=== PATIENT | male | born 1995 | race Caucasian/White ===

== ENCOUNTER 2018-09-25 22:16 | Observation (INO) ==
--- NOTE | 2018-09-25 23:24 | Emergency Department Note ---
Abdominal Pain HPI - General Chief Complaint: Abdominal Pain Stated Complaint: right lower abd. pain Time Seen by Provider: 09/25/18 23:03 Mode of arrival: ambulatory - History of Present Illness HPI Narrative: Tano is a 23-year-old young adult who describes right lateral abdominal pain that began around noon. About 3 hours ago it changed from being in the area between his epigastrium and umbilicus to right of his umbilicus. He vomited a couple times and feels some nausea. He had a colonoscopy 2 weeks ago that was negative. This was done because his father had colon cancer at age 23. He has had some sweats but no fevers or chills. Pain is worsened by juggling or bouncing REVIEW OF SYSTEMS: Denies chest pain. A little short of breath with the pain. No diarrhea or hematochezia or melena. Has had some constipation. No dysuria. No dizziness. - Related Data Previous Rx's Medication Instructions Recorded Ondansetron [Zofran Odt] 4 mg PO Q4-6H PRN #10 tablet 03/28/15 albuterol sulfate HFA 90 180 mcg INHALATION Q6H PRN #2 07/27/16 mcg/actuation aerosol inhaler device inhalational spacing device See Dose Instructions .ROUTE 07/27/16 .MEDSUPPLY #2 packet mometasone-formoterol HFA 200 2 inh INHALATION BID #1 device 07/27/16 mcg-5 mcg/actuation aerosol inhaler Allergies Allergy/AdvReac Type Severity Reaction Status Date / Time Amoxicillin Allergy Mild Rash Verified 09/11/18 12:01 Abdominal Pain PMH - Past Medical History Medical history: Reports: asthma, migraine. Denies: DM, hypertension Surgical history ED: Reports: no surgical history - Social History Smoking status: Never smoker Alcohol use: Reports: Occasionally Drug use: Reports: none Physical Exam Limitations: no limitations General appearance: alert, consternation (Mildly), in no apparent distress, malaise Head: atraumatic, normocephalic Eye: Present: EOMI Neck: Present: trachea midline. Absent: lymphadenopathy, thyromegaly Chest: Present: symmetric chest wall rise Respiratory: Present: normal lung sounds bilaterally. Absent: respiratory distress, wheezes, stridor, accessory muscle use, prolonged expiratory phase Cardiovascular: Present: regular rate, normal rhythm. Absent: systolic murmur, diastolic murmur Abdominal: Present: soft, tenderness, guarding. Absent: distention, rebound, rigidity, organomegaly, mass Abdominal tenderness: Present: RLQ, moderate Extremities: Absent: pedal edema, pretibial edema, calf tenderness Neurological: Present: alert, oriented X3 Psychiatric: Present: serious. Absent: depressed, agitated, anxious, poor eye contact Skin: Present: warm, dry Course Vital Signs Pulse Rate 65 09/25/18 23:07 Blood Pressure 110/60 09/25/18 23:07 Pulse Oximetry (%) 100 09/25/18 23:07 Pulse Rate 73 09/26/18 00:31 Blood Pressure 110/66 09/26/18 00:31 Pulse Oximetry (%) 100 09/26/18 00:31 Abdominal Pain - MDM Narrative Medical decision making narrative: Right lower quadrant pain on a background of some constipation. I will order labs and ultrasound and if this is negative CT scan. - Lab Data Lab results reviewed: Yes I reviewed the patient's lab results. Result diagrams: 09/25/18 23:13 09/25/18 23:13 Lab Results 09/25/18 09/25/18 Range/Units 23:13 23:13 WBC 13.1 H (4.5-11.0) K/mcL RBC 5.11 (4.50-5.90) M/mcL Hgb 15.5 (13.5-16.5) g/dL Hct 45.6 (41.0-55.0) % MCV 89.2 (80.0-100.0) fL MCH 30.3 (26.0-34.0) pg MCHC 34.0 (31.0-36.0) g/dL RDW 12.8 (11.5-14.5) % Plt Count 196 (140-440) K/mcL MPV 8.9 (7.4-10.4) fL Gran % 79.8 H (38.0-78.0) % Lymph % (Auto) 11.5 L (15.5-49.0) % [place] % (Auto) 6.5 (1.0-12.0) % Eos % (Auto) 1.8 (0.0-7.0) % Baso % (Auto) 0.4 (0.0-2.0) % Gran # 10.4 H (1.8-8.0) K/mcL Lymph # (Auto) 1.5 (1.5-4.8) K/mcL [place] # (Auto) 0.9 (0.1-0.9) K/mcL Eos # (Auto) 0.2 (0.0-0.7) K/mcL Baso # (Auto) 0 (0.0-0.3) K/mcL Sodium 140 (133-145) mmol/L Potassium 3.6 (3.3-5.1) mmol/L Chloride 101 (96-108) mmol/L Carbon Dioxide 23 (22-30) mmol/L Anion Gap 16.0 (8-16) BUN 16 (6-20) mg/dl Creatinine 1.1 (0.7-1.2) mg/dl GFR Calculation 95 Glucose 115 H (70-105) mg/dL Calcium 9.7 (8.6-10.4) mg/dl Total Bilirubin 0.5 (0.0-1.0) mg/dL AST 25 (0-37) U/l ALT 20 (0-40) U/l Alkaline Phosphatase 59 (39-117) U/L C-Reactive Protein 0.3 (0.0-0.8) mg/dl Total Protein 7.2 (5.9-8.4) gm/dL Albumin 4.8 (3.2-5.2) gm/dL Globulin 2.4 (2.2-3.7) gm/dL Albumin/Globulin Ratio 2.0 (1.0-2.3) - Radiology Data Radiology results reviewed: Yes I reviewed the patient's radiology results. Disposition Pt seen by [facility]/PA only: No Clinical Impression: RLQ abdominal pain Appendicitis, acute Qualifiers: Acute appendicitis type: with localized peritonitis Appendicitis gangrene presence: without gangrene Appendicitis perforation presence: without perforation Appendicitis abscess presence: without abscess Qualified Code(s): K35.30 - Acute appendicitis with localized peritonitis, without perforation or gangrene Summary: With mild elevated white count at 13.1+ ultrasound demonstrating "suspected dilated appendix suggesting acute appendicitis" plus exam compatible with right lower quadrant moderate pain, I spoke with Dr. Nicholas Collins, general surgeon, who agrees that likely this is appendicitis with appendectomy necessary. Patient is being admitted with transition orders at the request of Dr. Collins being placed by myself. Patient has allergy to amoxicillin with hives that occurred in his teens. Will use cefoxitin 2 g the q. 8 hours. Disposition: Xfer As Inpt ([facility]) Condition: Good Referrals: Nick Arciniega MD [Primary Care Provider] -
[2018-09-26 00:06] LABS: Basophils # (Auto) 0 K/mcL (0.0-0.3); Basophils % (Auto) 0.4 % (0.0-2.0); Eosinophils # (Auto) 0.2 K/mcL (0.0-0.7); Eosinophils % (Auto) 1.8 % (0.0-7.0); Granulocytes % (Auto) 79.8 % (38.0-78.0); Hematocrit 45.6 % (41.0-55.0); Hemoglobin 15.5 g/dL (13.5-16.5); Lymphocytes # (Auto) 1.5 K/mcL (1.5-4.8); Lymphocytes % (Auto) 11.5 % (15.5-49.0); Mean Cell Volume 89.2 fL (80.0-100.0); Mean Platelet Volume 8.9 fL (7.4-10.4); Monocytes # (Auto) 0.9 K/mcL (0.1-0.9); Monocytes % (Auto) 6.5 % (1.0-12.0); Platelet Count 196 K/mcL (140-440); RBC 5.11 M/mcL (4.50-5.90); Red Cell Distribution Width 12.8 % (11.5-14.5); WBC 13.1 K/mcL (4.5-11.0)
[2018-09-26 00:15] LABS: ALT/SGPT 20 U/l (0-40); AST/SGOT 25 U/l (0-37); Albumin 4.8 gm/dL (3.2-5.2); Alkaline Phosphatase 59 U/L (39-117); Bilirubin,Total 0.5 mg/dL (0.0-1.0); Blood Urea Nitrogen 16 mg/dl (6-20); C-Reactive Protein 0.3 mg/dl (0.0-0.8); Calcium 9.7 mg/dl (8.6-10.4); Carbon Dioxide 23 mmol/L (22-30); Chloride 101 mmol/L (96-108); Globulin 2.4 gm/dL (2.2-3.7); Glomerular Filtration Rate 95; Glucose 115 mg/dL (70-105)
[2018-09-26] MEDS ORDERED: ONDANSETRON 4 MG/2 ML VIAL IV PRN ×3 (00:31→14:41)
[2018-09-26] MEDS: LACTATED RINGERS 1,000 ML IV SCH ×3 (00:38→16:48)
[2018-09-26] MEDS: cefOXitin 2 GM VIAL IV SCH ×4 (01:59→21:43)
--- NOTE | 2018-09-26 07:07 | Ultrasound Report ---
CLINICAL INFORMATION: Right lower quadrant pain TECHNIQUE: Multani scale and color flow Doppler spectral imaging. Examination of the right lower quadrant COMPARISON: None. FINDINGS: There is a fluid-filled focal abnormality in the right lower quadrant. This is tubular shaped and measures approximately 12 mm in diameter. This may be an enlarged appendix and appendicitis. Patient was tender in this region. There is no free pelvic fluid. No other abnormality identified. Examination is initially interpreted by [facility] IMPRESSION: 1. Tubular shaped structure containing fluid in the right lower quadrant. 2. Findings are consistent with appendicitis. Interpreted and Authenticated by: Erwin Raines 09/26/18
--- NOTE | 2018-09-26 12:29 | General Surg History&Physical ---
History of Present Illness Patient information: Note initiated : 09/26/18 at 12:26 pm Service Date, if different from initiated Date: [] Patient: Tano Saucedo a 23 y/o M admitted on 09/26/18 for right lower abd. pain. Chief Complaint: [abdominal pain nausea and vomiting] HPI: Mr. Saucedo is a 23 year old M with onset of upper abdominal pain about noon yesterday. The pain was crampy in nature. Later during the day the pain settled in the right lower quadrant and he developed 2 episodes of nausea with vomiting. The pain became worse and he was seen in the emergency room. White blood count was 13,000. Ultrasound shows a 12 mm appendix and the ring of the wall compatible with appendicitis. Patient has not had similar episodes in the past. Review of Systems All systems PM: reviewed and no additional remarkable complaints except as stated (no abnormality except for occasional headache) Past History Past medical history: No chronic medical illness. He has episodic asthma with his last attack over one year ago Past surgical history: No operative procedure Past family history: Mother alive age 46 without illness Father alive age 47 without illness father with history of colon polyps at age 27 1 brother with sleep apnea Past social history: Denies tobacco use Drinks one beer daily Denies drug use Medications and Allergies Home Medications Medication Instructions Recorded Confirmed Type Ondansetron [Zofran Odt] 4 mg PO Q4-6H PRN #10 tablet 03/28/15 Rx albuterol sulfate HFA 90 180 mcg INHALATION Q6H PRN #2 07/27/16 Rx mcg/actuation aerosol inhaler device inhalational spacing device See Dose Instructions .ROUTE 07/27/16 Rx .MEDSUPPLY #2 packet mometasone-formoterol HFA 200 2 inh INHALATION BID #1 device 07/27/16 Rx mcg-5 mcg/actuation aerosol inhaler Allergies Allergy/AdvReac Type Severity Reaction Status Date / Time Amoxicillin Allergy Mild Rash Verified 09/11/18 12:01 Exam Temp Pulse Resp BP Pulse Ox 98.5 F 58 L 16 102/52 97 09/26/18 07:50 09/26/18 07:50 09/26/18 07:50 09/26/18 07:50 09/26/18 07:50 - General physical appearance well developed, well nourished, no distress - Eyes PERRL, normal ocular movement - ENT normal pinna, normal nares, normal mucosa, no hearing loss, no congestion - Head Head exam IM: Present: atraumatic, normocephalic - Neck no masses, no bruits, trachea midline, no lymphadenopathy, no venous distension - Cardiovascular Cardiovascular exam IM: Present: normal rate and rhythm - Respiratory normal expansion, normal respiratory effort, clear to auscultation - Abdomen Abdomen: Present: tender (tenderness to palpation with guarding in the right lower quadrant; active bowel sounds), bowel sounds, distended Hernia: Present: none - Genitourinary Present: normal penis with no external lesions - Integumentary Present: no rash, no growths, no abnormal pigmentation - Neurologic Present: normal coordination, normal sensation - Musculoskeletal Present: normal gait, normal posture - Psychiatric Present: oriented to time, oriented to person, oriented to place, speech is normal, memory intact Assessment and Plan (1) Appendicitis, acute Patient is counseled for laparoscopic appendectomy which will be done later today Status: Acute Qualifiers: Acute appendicitis type: with localized peritonitis Appendicitis gangrene presence: without gangrene Appendicitis perforation presence: without perforation Appendicitis abscess presence: without abscess Qualified Code(s): K35.30 - Acute appendicitis with localized peritonitis, without perforation or gangrene
[2018-09-26] MEDS ORDERED: LIDOCAINE HCL/PF 100 MG/5 ML SYRINGE IV ONE (12:55)
[2018-09-26] MEDS ORDERED: ONDANSETRON 4 MG/2 ML VIAL IV ONE (12:55)
[2018-09-26] MEDS ORDERED: KETAMINE 100 MG/ML ML IV ONE (12:55)
[2018-09-26] MEDS ORDERED: ROCURONIUM 10 MG/ML ML IV ONE (12:55)
[2018-09-26] MEDS ORDERED: PROPOFOL 200 MG/20 ML VIAL IV ONE (12:55)
[2018-09-26] MEDS ORDERED: MIDAZOLAM 2 MG/2 ML VIAL IV ONE (12:55)
[2018-09-26] MEDS ORDERED: SUGAMMADEX SODIUM 200 MG/2 ML VIAL IV ONE (12:55)
[2018-09-26] MEDS ORDERED: fentaNYL 100 MCG/2 ML VIAL IV ONE (12:55)
[2018-09-26] MEDS ORDERED: GLYCOPYRROLATE 0.2 MG/ML VIAL IV ONE (12:55)
[2018-09-26] MEDS ORDERED: IPRATROPIUM/ALBUTEROL 3 ML AMPUL.NEB NEB PRN (13:45)
[2018-09-26] MEDS ORDERED: FLUMAZENIL 0.1 MG/ML ML IV PRN (13:45)
[2018-09-26] MEDS ORDERED: MEPERIDINE 25 MG/ML SYRINGE IV PRN (13:45)
[2018-09-26] MEDS ORDERED: KETOROLAC 30 MG/ML VIAL IV PRN (13:45)
[2018-09-26] MEDS ORDERED: fentaNYL 100 MCG/2 ML VIAL IV PRN (13:45)
[2018-09-26] MEDS ORDERED: HYDROmorphone 2 MG/ML VIAL IV PRN ×2 (13:45→15:43)
[2018-09-26] MEDS ORDERED: NALOXONE HCL 0.4 MG/ML VIAL IV PRN (13:45)
[2018-09-26] MEDS ORDERED: LACTATED RINGERS 250 ML IV PRN (13:45)
[2018-09-26] MEDS ORDERED: LACTATED RINGERS 1,000 ML IV SCH ×2 (13:45→14:41)
[2018-09-26] MEDS ORDERED: METHOCARBAMOL 1,000 MG/10 ML VIAL IV PRN (13:45)
[2018-09-26] MEDS ORDERED: BENZOCAINE/MENTHOL 1 LOZENGE PO PRN (13:45)
[2018-09-26] MEDS ORDERED: ACETAMINOPHEN 1,000 MG/100 ML BOTTLE IV ONE (13:45)
--- NOTE | 2018-09-26 13:48 | Brief Operative Note ---
Date of procedure: 09/26/18 Pre-op diagnosis: acute appendicitis Post-op diagnosis: other (acute appendicitis) Procedure: LAPAROSCOPIC APPENDECTOMY Grafts/Implants: No Anesthesia: GETA Findings: ACUTE SUPPURATIVE APPENDICITIS Complications: none Surgeon: Cassia Collins Estimated blood loss (cc): 5 Specimens Removed/Pathology: other (APPENDIX) Condition: stable Disposition: PACU
[2018-09-26] MEDS ORDERED: cefOXitin 2 GM in DEXTROSE 5% IN WATER 50 ML IV SCH (14:41)
[2018-09-26] MEDS: oxyCODONE/APAP 5/325MG TABLET PO PRN ×2 (14:59→21:43)
[2018-09-26] MEDS: 0.9 % SODIUM CHLORIDE 1,000 ML IV SCH ×2 (15:01→21:43)
[2018-09-26] MEDS: 0.9 % SODIUM CHLORIDE 10 ML SYRINGE IV SCH ×2 (15:14→21:44)
[2018-09-27] MEDS: 0.9 % SODIUM CHLORIDE 1,000 ML IV SCH ×2 (04:27→04:34)
[2018-09-27 05:44] LABS: Basophils # (Auto) 0 K/mcL (0.0-0.3); Basophils % (Auto) 0.4 % (0.0-2.0); Eosinophils # (Auto) 0.3 K/mcL (0.0-0.7); Eosinophils % (Auto) 4.4 % (0.0-7.0); Granulocytes % (Auto) 59.8 % (38.0-78.0); Hematocrit 39.4 % (41.0-55.0); Hemoglobin 13.4 g/dL (13.5-16.5); Lymphocytes % (Auto) 27.1 % (15.5-49.0); Mean Cell Volume 89.4 fL (80.0-100.0); Mean Corpuscular HGB Conc 33.9 g/dL (31.0-36.0); Mean Platelet Volume 9.1 fL (7.4-10.4); Monocytes # (Auto) 0.6 K/mcL (0.1-0.9); Monocytes % (Auto) 8.3 % (1.0-12.0); Platelet Count 172 K/mcL (140-440); RBC 4.41 M/mcL (4.50-5.90); Red Cell Distribution Width 12.6 % (11.5-14.5); WBC 7.2 K/mcL (4.5-11.0)
[2018-09-27] MEDS ORDERED: LEVOFLOXACIN 750 MG TABLET PO ONE (06:02)
[2018-09-27] MEDS: cefOXitin 2 GM VIAL IV SCH (06:04)
[2018-09-27] MEDS: 0.9 % SODIUM CHLORIDE 10 ML SYRINGE IV SCH (06:04)
[2018-09-27 06:21] LABS: ALT/SGPT 13 U/l (0-40); AST/SGOT 13 U/l (0-37); Albumin 3.4 gm/dL (3.2-5.2); Albumin/Globulin Ratio 1.7 (1.0-2.3); Alkaline Phosphatase 47 U/L (39-117); Bilirubin,Direct < 0.2 mg/dL (0.0-0.3); Bilirubin,Total 0.4 mg/dL (0.0-1.0); Blood Urea Nitrogen 9 mg/dl (6-20); Calcium 8.6 mg/dl (8.6-10.4); Carbon Dioxide 22 mmol/L (22-30); Chloride 109 mmol/L (96-108); Glomerular Filtration Rate 95; Glucose 89 mg/dL (70-105); Lactate Dehydrogenase 141 U/L (94-250); Triglycerides 74 mg/dl (<150); Uric Acid 4.2 mg/dL (2.5-8.0)
--- NOTE | 2018-09-27 10:46 | Discharge Summary ---
Providers - Providers Patient information: Note initiated : 09/27/18 at 10:43 am Service Date, if different from initiated Date: [] Patient: Tano Saucedo 23 y/o M admitted on 09/26/18 for right lower abd. pain. Chief Complaint: [] Date of admission: 09/26/18 Discharge date: 09/27/18 Attending physician: Cassia Collins Hospitalization Hospital Course: 23-year-old male with a 2 day history of abdominal pain settling in the right lower quadrant. Ultrasound confirmed dilated edematous appendix. He had laparoscopic appendectomy for acute appendicitis on OCTOBER 02. He's done well in the postoperative period and has no complaints. He has tolerated diet without nausea and he's been afebrile. White blood count 7.2, hemoglobin 13.4. Patient is stable and is discharged home. Discharge diagnosis: acute suppurative appendicitis Reason for admission: abdominal pain nausea vomiting Procedures: Laparoscopic appendectomy October 02 Pertinent studies/significant findings: Abdominal ultrasound Complications: None Exam Temp Pulse Resp BP Pulse Ox 97.6 F 66 13 113/68 96 09/27/18 07:54 09/27/18 07:54 09/27/18 07:54 09/27/18 07:54 09/27/18 07:54 - General physical appearance well developed, well nourished, no distress - Eyes PERRL, normal ocular movement - ENT normal pinna, normal nares, normal mucosa, no hearing loss, no congestion - Head Head exam IM: Present: atraumatic, normocephalic - Neck no masses, no bruits, trachea midline, no lymphadenopathy, no venous distension - Cardiovascular Cardiovascular exam IM: Present: normal rate and rhythm - Respiratory normal expansion, normal respiratory effort, clear to percussion, clear to auscultation - Abdomen Abdomen: Present: soft, tender (mild tenderness around port sites; no distention noted; good active bowel sounds; port sites are unremarkable), bowel sounds Hernia: Present: none - Genitourinary Present: normal penis with no external lesions - Integumentary Present: no rash, no growths, no abnormal pigmentation - Neurologic Present: normal coordination, normal sensation - Musculoskeletal Present: normal gait, normal posture - Psychiatric Present: oriented to time, oriented to person, oriented to place, speech is normal, memory intact Discharge Plan - Patient/Caregiver Discharge Instructions Activity: increase activity as tolerated Diet: Regular Diet Prescriptions: oxyCODONE HCL/ACETAMINOPHEN [Endocet 10-325 mg Tablet] 1 tab PO Q4H PRN #20 tab PRN Reason: Pain - Follow up Plan Follow up with: Nick Arciniega MD [Primary Care Provider] - Cassia Collins MD [Physician] - Disposition: Home, Self-Care Prognosis: Good Rehab Potential: Good I certify that the patient requires SNF services.: No Overall status at discharge: patient is back to baseline Pending Studies Resuscitation Status Full Code Diet Full Liquid Diet Start TueSep 26 1441 Hydromorphone HCl (Dilaudid) 0.5 mg IV Q2HP PRN PRN Reason: PAIN LEVEL > 6 Last Admin: 09/26/18 15:54 Dose: 0.5 mg Documented by: SAMANTHA Oxycodone/Acetaminophen (Percocet 5-325 Mg) 1 tab PO Q4H PRN PRN Reason: PAIN LEVEL 3-6 Last Admin: 09/26/18 21:43 Dose: 1 tab Documented by: Admin: 09/26/18 14:59 Dose: 1 tab Documented by: SAMANTHA Shift Summary 09/27/18 03:07 Shift Summary by Arabella Wagner A&O x4. Pt has slept the majority of this shift. Pt urinated 550 with PVR of ~220. Pt then urinated 900 PVR of 0. 3 lap sites to the abdomen with joseph and tegaderm - small amount of sanguinous drainage but dry and intact. 20G IV to RAC infusing NS 150ml/hr. Medicated for pain with Percocet 1 tab x1 - pain has maintained 2/10. VSS on B/P was 90/49 but he was in a deep sleep. Girlfriend at bedside. Will update at bedside. Potential D/C today. Initialized on 09/27/18 03:07 - END OF NOTE
--- NOTE | 2018-09-27 13:24 | Operative Note ---
DATE OF OPERATION: 09/26/2018 PREOPERATIVE DIAGNOSIS: Acute appendicitis. POSTOPERATIVE DIAGNOSIS: Acute appendicitis. PROCEDURE: Laparoscopic appendectomy. SURGEON: Cassia Collins M.D. FINDINGS: Acute suppurative appendicitis. DESCRIPTION OF PROCEDURE: Under general anesthesia, the patient's abdomen was prepped and draped in a sterile field. Timeout procedure was carried out as per protocol. A supraumbilical midline incision was made and Veress needle was inserted uneventfully. Peritoneum was insufflated with 3 liters of CO2. A 12 mm port was placed. Laparoscope was placed. Under videoscopic guidance, a 5 mm port was placed in the suprapubic midline and a 12 mm port in the left lower quadrant. The patient was placed in deep Trendelenburg position and rotated to the left. The appendix was found densely adherent to the lateral pelvic wall in the right gutter. The adhesions were relatively mature though the appendix was inflamed. The adhesions were from the peritoneal wall using electrocautery and blunt dissection. The base of the appendix was then grasped and a window was made in the mesoappendix at the base. The appendix was transected using Endo MIRNA stapler. The mesoappendix was rather short and very thickened. It was serially dissected and clipped with multiple endoclips rather than use the linear stapler. Irrigation was carried out in the bed of the appendix and in the right gutter. There was no bleeding. There was no need for a drain. The appendix was placed in an Endopouch and retrieved. CO2 was allowed to escape from the abdomen and the ports were removed. Fascia at the umbilicus was closed with interrupted 0 Vicryl. Skin incisions were closed with joseph. Tegaderm dressings were placed. The patient tolerated the procedure well. He was awakened, transferred to a bed, and taken to the postanesthetic care unit in a stable, satisfactory condition. LCS:haydee Job ID: [id number] Doc ID: [id number] Cassia Collins M.D.
--- NOTE | 2018-09-27 13:40 | Surgical Pathology Report ---
HISTOLOGY SPECIMEN MICROSCOPIC DIAGNOSIS APPENDIX, APPENDECTOMY: -- ACUTE APPENDICITIS WITH SEROSITIS. (EBD:fany) PROCEDURAL IMPRESSION Acute appendicitis. GROSS DESCRIPTION Received in formalin designated appendix per requisition, is a pink-arzola appendix that measures 6.6 cm in length and up to 0.9 cm in diameter. The margin is stapled. This is inked black. There are additional joseph within the arzola attached fat. Sectioning reveals red-arzola viscous fluid and red-arzola tissue. Grossly there are no perforations or lesions identified. Sport Psychologist sections are submitted in one cassette. (SCB:adj) Electronically Signed by: Glenys Alvarez M.D.
== END 2018-09-27 12:00 | disposition home or self-care (01) ==
LOC: ED 22:16 → MEDSUR 22:16
PROVIDERS: ADMIT Family Medicine Adult Medicine; ATTEND Family Medicine Adult Medicine